=== PATIENT | female | born 1970 | race Caucasian/White ===

== ENCOUNTER → 2016-06-04 | Outpatient (CLI) | payer MEDICAID, OTHER ==
--- NOTE | 2016-06-04 19:28 | XR ---
EXAMINATION TYPE: XR lumbar spine 2 or 3V DATE OF EXAM: 06/04/2016 6:16 PM COMPARISON: NONE HISTORY: Pain after trauma TECHNIQUE: 3 views FINDINGS: Bones and joints and soft tissues are unremarkable for acute findings. IMPRESSION: Negative for fracture or malalignment.
--- NOTE | 2016-06-04 19:30 | XR ---
EXAMINATION TYPE: XR cervical spine comp DATE OF EXAM: 06/04/2016 6:16 PM COMPARISON: NONE HISTORY: Pain after trauma TECHNIQUE: 5 views FINDINGS: The bones and joints and soft tissues are negative for acute findings. IMPRESSION: Negative for fracture or malalignment.
== END | disposition home or self-care (01) ==
LOC: RADXRMAIN 17:23
PROVIDERS: ATTEND Emergency Medicine
DX: S13.4XXA Sprain of ligaments of cervical spine, initial encounter (principal); S30.0XXA Contusion of lower back and pelvis, initial encounter
CPT/HCPCS: 72050; 72100

== ENCOUNTER → 2016-07-01 | Outpatient (CLI) | payer MEDICAID | END | disposition home or self-care (01) | LOC: LABWHC1 17:15 | PROVIDERS: ATTEND Otolaryngology | DX: J30.9 Allergic rhinitis, unspecified (principal) | CPT/HCPCS: 36415 ==

== ENCOUNTER → 2016-08-26 | Outpatient (CLI) | payer MEDICAID ==
[2016-08-28 17:43] LABS: Tea IgG 4.2 mcg/mL (<2.0)
[2016-08-29 20:12] LABS: Crab IgG 24.9 mcg/mL (< 2.0); Walnut IgG 7.3 mcg/mL (< 2.0)
[2016-08-29 20:13] LABS: Banana IgG 33.3 mcg/mL (< 2.0); Chicken Meat IgG 7.9 mcg/mL (< 2.0); Coffee IgG 10.9 mcg/mL (< 2.0); Egg Yolk IgG 42.1 mcg/mL (< 2.0); Orange IgG 10.6 mcg/mL (< 2.0); Pork IgG 6.1 mcg/mL (< 2.0)
[2016-08-29 20:14] LABS: Celery IgG 14.8 mcg/mL (< 2.0); Cow's Milk IgG 53.3 mcg/mL (< 2.0); Oat IgG 23.1 mcg/mL (< 2.0); Potato IgG 8.7 mcg/mL (< 2.0); Rice IgG 30.1 mcg/mL (< 2.0); Soybean IgG 10.4 mcg/mL (< 2.0); Tomato IgG 21.6 mcg/mL (< 2.0); Wheat IgG 24.9 mcg/mL (< 2.0)
[2016-09-02 11:58] LABS: Mis test requested (Blood) Strawberry IgG
[2016-09-02 12:05] LABS: Mis test requested (Blood) Shrimp IgG
[2016-09-02 12:11] LABS: Mis test requested (Blood) Salmon IgG
[2016-09-02 12:13] LABS: Mis test requested (Blood) Lettuce IgG
[2016-09-02 12:15] LABS: Mis test requested (Blood) Onion IgG
[2016-09-02 12:18] LABS: Mis test requested (Blood) Lobster IgG
== END | disposition home or self-care (01) ==
LOC: LABWHC1 07:06
PROVIDERS: ATTEND Otolaryngology
DX: L50.0 Allergic urticaria (principal); J30.89 Other allergic rhinitis; B44.89 Other forms of aspergillosis
CPT/HCPCS: 36415; 86001

== ENCOUNTER → 2016-08-26 | Outpatient (CLI) | payer MEDICAID ==
--- NOTE | 2016-08-26 11:55 | MM ---
Reason for exam: additional evaluation requested from prior study. Last mammogram was performed 1 year ago. History: Patient is nulliparous. Benign US biopsy breast VAD RT of the right breast, August 29, 2014. Benign US biopsy breast add'l VAD RT of the right breast, August 29, 2014. Took hormonal contraceptives for 5 years. Physical Findings: Nurse Summary: a less than 0.5cm nodule in the right breast at 9 o'clock, and a less than 0.5cm nodule in the left breast at 2 o'clock (nurse kp). MG 3D Diag Mammo W/Cad MARITO Bilateral CC, MLO, and LM view(s) were taken. Prior study comparison: August 23, 2015, bilateral MG 3d diag mammo w/cad MARITO. February 20, 2015, right breast US breast RT. August 13, 2014, bilateral MG diagnostic mammo w CAD MARITO. August 04, 2013, bilateral digital screening mammo w/CAD. The breast tissue is heterogeneously dense. This may lower the sensitivity of mammography. Previous mammotome biopsy in the right breast x 2. Bilateral upper outer quadrant palpable markers. No significant new findings when compared with previous films. These results were verbally communicated with the patient and result sheet given to the patient on 08/26/16. ASSESSMENT: Incomplete: need additional imaging evaluation, BI-RAD 0 RECOMMENDATION: Ultrasound of both breasts. (palpable areas)
--- NOTE | 2016-08-26 12:53 | USB ---
Reason for exam: clinical finding. History: Patient is nulliparous. Benign US biopsy breast VAD RT of the right breast, August 29, 2014. Benign US biopsy breast add'l VAD RT of the right breast, August 29, 2014. Took hormonal contraceptives for 5 years. US Breast Limited BILAT Right breast ultrasound demonstrates a 15 x 5 x 11mm oval, solid lesion at 6 o'clock versus 13 x 6 x 13mm corresponding to previous biopsied fibroadenoma and a 5 x 3 x 5mm oval, solid lesion at 9 o'clock versus 7 x 4 x 5mm corresponding to previously biopsied fiboradenoma. No suspicious abnormality at the palpable site. Left breast ultrsaound demonstrates a 8 x 4 x 7mm mixed lesion at 1 o'clock, for which a biopsy is recommended and corresponding to the palpable area, a 5mm cystic, benign lesion at 1 o'clock and a 8 x 4 x 8mm, oval, cystic, benign lesion at 3 o'clock. These results were verbally communicated with the patient and result sheet given to the patient on 08/26/16. ASSESSMENT: Suspicious, BI-RAD 4 RECOMMENDATION: Surgical consultation and ultrasound core biopsy of the left breast. (left 1 o'clock palpable) Called Dr. Glez with mammographic findings and has scheduled an appointment for the patient for 09/01/16 at 11:[address] Hoang. PRELIMINARY REPORT CALLED AND FAXED TO DR. HOANG ON 08/26/16 AT 300/TP. MTDD
== END | disposition home or self-care (01) ==
LOC: RADMAMWWP 07:02
PROVIDERS: ATTEND Obstetrics & Gynecology
DX: N60.02 Solitary cyst of left breast (principal); R92.8 Other abnormal and inconclusive findings on diagnostic imaging of breast
CPT/HCPCS: 76642; G0204; G0279

== ENCOUNTER → 2016-09-10 | Day surgery (SDC) | payer MEDICAID ==
[~2016-09-10] MED LIST: BACITRACIN OINT 1 EACH PACKET TOPICAL ONE; LIDOCAINE 1% INJ 10MG/ML (20 ML MDV) ONE
--- NOTE | 2016-09-10 11:16 | USB ---
EXAMINATION TYPE: US biopsy breast VAD LT DATE OF EXAM: 09/10/2016 11:00 AM CLINICAL HISTORY: R92.8 ABN MAMMO. TECHNIQUE: Ultrasound guided core biopsy of left breast. COMPARISON: NONE FINDINGS: The procedure of ultrasound guided core biopsy was explained to the patient. Benefits, alternatives, and risks were discussed. An informed consent was then obtained. A timeout was performed. The patient was placed in supine positioning for imaging and for the procedure. The overlying skin was prepped and draped in usual sterile fashion. Lidocaine buffered with bicarbonate was used as anesthetic into the skin and subcutaneous tissue up to area of concern in the left breast. A marco was made with surgical scalpel. Under ultrasound guidance, a 12-gauge vacuum assisted biopsy gun device was used to obtain 6 core samples. Following this, a biopsy clip was left in lesion. This area appeared to collapse with first pass suggesting a complex cyst. There was a small cystic component to this structure on the exam. The patient tolerated the procedure well without any immediate complication. The patient was kept in the radiology department for short stay after the procedure and then discharged home in stable condition. Postprocedure mammogram is obtained. Clip is in the upper outer aspect left breast. IMPRESSION: Successful, uncomplicated ultrasound guided core biopsy of area of concern in the left breast, full pathology results to follow. Recommendations: Recommendations are pending pathology results. Pathology Results: Benign BREAST, LEFT, ULTRASOUND GUIDED CORE BIOPSY: FIBROCYSTIC CHANGE (STROMAL FIBROSIS, CYST FORMATION, APOCRINE METAPLASIA, ADENOSIS, AND FOCAL DUCT HYPERPLASIA). Recommendation Follow up ultrasound of the left breast in 6 months. RICHARD
--- NOTE | 2016-09-10 11:22 | MM ---
Post procedure mammogram Post procedure mammogram was obtained craniocaudal and mediolateral views. There is a core marker within the left breast in the upper outer aspect midportion. IMPRESSIONS: 1. Post procedure mammogram for clip placement.
== END ==
LOC: RADUSWWP 08:52
PROVIDERS: ATTEND Surgery
DX: N60.32 Fibrosclerosis of left breast (principal); N60.02 Solitary cyst of left breast; N60.82 Other benign mammary dysplasias of left breast; N60.22 Fibroadenosis of left breast; N60.92 Unspecified benign mammary dysplasia of left breast; R92.8 Other abnormal and inconclusive findings on diagnostic imaging of breast
CPT/HCPCS: 88305; 19083; G0206; A4648; J2001

== ENCOUNTER → 2016-09-16 | Outpatient (CLI) | payer OTHER ==
--- NOTE | 2016-09-16 22:02 | MR ---
MRI CERVICAL SPINE: CLINICAL HISTORY: Sprain of ligaments of cervical spine initial encounter per order. Headaches with n reno pain and numbness and tingling sensation in neck into bilateral upper extremities including kimanie rs per patient after fall injury April 2016 per patient. TECHNIQUE: Multiplanar, multisequence imaging of the cervical spine is performed without IV contrast. COMPARISON: Cervical spine x-ray June 04, 2016. FINDINGS: Sagittal images of the cervical spine show the craniocervical junction to appear within nor mal limits. The cervical and upper thoracic spinal cord is normal in caliber and signal. Some revers al of normal cervical curvature is present. The vertebral body heights are normal. There is mild to m oderate disc space narrowing C5-C6 level. Posterior spur disc complex is seen effacing anterior theca l sac at this level on sagittal images. The bone marrow signal intensity is within normal limits. No significant spurring is seen. Axial images show the C2-C3 and C3-C4 levels to appear within normal limits. Axial images at C4-C5 level show bilateral spur disc complexes causing mild right and mild to moderat e left-sided neural foraminal narrowing on axial image 32. Axial images at C5-C6 level show spur disc complexes causing moderate bilateral neural foraminal narr owing with effacement of left paracentral anterolateral thecal sac seen on axial image 32. Axial images at C6-C7 and C7-T1 levels are felt within normal limits. There is 4 mm T2 hyperintense lesion laterally lower pole level left thyroid lobe on axial image 19 p resumed benign. IMPRESSION: Reversal of normal cervical curvature with degenerative changes mid cervical spine most p rominent at C5-C6 level as detailed above.
== END | disposition home or self-care (01) ==
LOC: RADMRIMAIN 21:13
PROVIDERS: ATTEND Emergency Medicine
DX: M47.812 Spondylosis without myelopathy or radiculopathy, cervical region (principal); M43.8X2 Other specified deforming dorsopathies, cervical region; S30.0XXA Contusion of lower back and pelvis, initial encounter; M25.561 Pain in right knee; M25.562 Pain in left knee; R20.9 Unspecified disturbances of skin sensation
CPT/HCPCS: 72141

== ENCOUNTER → 2016-09-21 | Outpatient (CLI) | payer OTHER ==
--- NOTE | 2016-09-21 19:33 | XR ---
EXAMINATION TYPE: XR wrist complete LT DATE OF EXAM: 09/21/2016 COMPARISON: NONE HISTORY: Pain TECHNIQUE: 4 views FINDINGS: I see no fracture nor dislocation. Scaphoid is intact. Joint spaces are fairly normal. IMPRESSION: Negative left wrist exam
== END ==
LOC: RADXRMAIN 19:01
PROVIDERS: ATTEND Emergency Medicine
DX: M25.532 Pain in left wrist (principal)

== ENCOUNTER → 2017-03-15 | Outpatient (CLI) | payer MEDICAID ==
--- NOTE | 2017-03-16 08:00 | USB ---
Reason for exam: follow-up at short interval from prior study. History: Patient is nulliparous. Benign US biopsy breast VAD LT of the left breast, September 10, 2016. Benign US biopsy breast VAD RT of the right breast, August 29, 2014. Benign US biopsy breast add'l VAD RT of the right breast, August 29, 2014. Took hormonal contraceptives for 5 years. Physical Findings: Nurse Summary: 1cm movable nodule in the right breast at 9 o'clock (nurse mj). US Breast Limited BILAT Right breast ultrasound demonstrates a 0.6 x 0.4 x 0.3cm solid, hypoechoic lesion at 9 o'clock, chronic palpable and a 0.5 x 0.5 x 0.3cm cystic lesion at 10 o'clock and previously biopsied versus 5 x 5 x 3mm, benign. Right upper outer quadrant scanned. Left breast ultrasound includes all four quadrants, the retroareolar region and axilla. Finding demonstrates a 0.4 x 0.3 x 0.2cm cystic, benign lesion at 1 o'clock, a 0.5 x 0.4 x 0.4cm cystic, benign lesion at 1 o'clock and a 0.3 x 0.4 x .4cm cystic, benign lesion at 3 o'clock. Return to annual exams both breasts in 6 months in diagnostic clinic. These results were verbally communicated with the patient and result sheet given to the patient on 03/15/17. ASSESSMENT: Benign, BI-RAD 2 RECOMMENDATION: Follow-up diagnostic mammogram of both breasts in 6 months. Back on schedule.
== END ==
LOC: RADUSWWP 15:43
PROVIDERS: ATTEND Obstetrics & Gynecology
DX: R92.8 Other abnormal and inconclusive findings on diagnostic imaging of breast (principal)

== ENCOUNTER → 2017-06-23 | Outpatient (CLI) | payer MEDICAID ==
--- NOTE | 2017-06-24 08:49 | USB ---
Reason for exam: clinical finding. History: Patient is nulliparous. Benign US biopsy breast VAD LT of the left breast, September 10, 2016. Benign US biopsy breast VAD RT of the right breast, August 29, 2014. Benign US biopsy breast add'l VAD RT of the right breast, August 29, 2014. Took hormonal contraceptives for 5 years. US Breast Limited BILAT Right breast ultrasound demonstrates a 0.7 x 0.6 x 0.3cm oval, cystic lesion at 10 O'clock that correlates with mammographic findings and palpable. Left breast ultrasound includes all four quadrants, the retroareolar region and axilla. Finding demonstrates a 0.4 x 0.3 x 0.2cm oval, cystic lesion at 1 O'clock, a 0.4 x 0.5 x 0.3cm oval, cystic lesion at 1 O'clock that correlates with palpable, and a 0.4 x 0.4 x 0.3cm oval, cystic lesion at 3 O'clock. These results were verbally communicated with the patient and result sheet given to the patient on 06/23/17. ASSESSMENT: Benign, BI-RAD 2 RECOMMENDATION: Routine screening mammogram of both breasts in 1 year. Manage patient on a clinical basis.
--- NOTE | 2017-06-28 14:12 | MM ---
Reason for exam: clinical finding. Last mammogram was performed 9 months ago. History: Patient is nulliparous. Benign US biopsy breast VAD LT of the left breast, September 10, 2016. Benign US biopsy breast VAD RT of the right breast, August 29, 2014. Benign US biopsy breast add'l VAD RT of the right breast, August 29, 2014. Took hormonal contraceptives for 5 years. Physical Findings: Nurse Summary: There is a 1cm nodule in the right breast at 9 O'clock, and a 3cm nodule in the left breast at 2 O'clock (nurse dw). MG 3D Diag Mammo W/Cad MARITO Bilateral CC and MLO view(s) were taken. Prior study comparison: March 15, 2017, bilateral US breast limited BILAT. August 26, 2016, bilateral MG 3d diag mammo w/cad MARITO. The breast tissue is extremely dense which could obscure a lesion on mammography. Previous mammotome biopsy within the right breast x 2, and in the left breast x 1. BB's bilateral, mammogram stable at BB's. No significant new findings when compared with previous films. These results were verbally communicated with the patient and result sheet given to the patient on 06/23/17. ASSESSMENT: Benign, BI-RAD 2 RECOMMENDATION: Routine screening mammogram of both breasts in 1 year. Manage patient on a clinical basis.
== END | disposition home or self-care (01) ==
LOC: RADMAMWWP 14:58
PROVIDERS: ATTEND Obstetrics & Gynecology
DX: N63.10 Unspecified lump in the right breast, unspecified quadrant (principal); N60.02 Solitary cyst of left breast
CPT/HCPCS: 77066; 76642; G0279

== ENCOUNTER → 2017-08-06 | Outpatient (CLI) | payer MEDICAID, OTHER ==
--- NOTE | 2017-08-07 23:55 | US ---
EXAMINATION TYPE: US thyroid st tissue head/neck DATE OF EXAM: 08/06/2017 COMPARISON: NONE CLINICAL HISTORY: E04.1 Thyroid nodule. Thyroid nodule GLAND SIZE: Right Lobe: 5.4 x 1.7 x 2.0 cm Overall Parenchyma: homogenous Left Lobe: 5.0 x 1.3 x 1.8 cm Overall Parenchyma: homogeneous Isthmus Thickness: 0.2 cm NODULES RIGHT: # of nodules measured on right: 0 LEFT: # of nodules measured on left: 1 1. 0.9 X 0.7 x 0.6 cm hypoechoic solid nodule at the lower pole with well-defined margins. This nod ule is taller than wide and shows intranodular vascularity. Prior size: no previous ISTHMUS: # of nodules measured in the isthmus: 0 Bilateral neck scanned, no evidence of lymphadenopathy. IMPRESSION: Fairly homogeneous normal-sized thyroid with 9 mm hypoechoic solid nodule lower pole level of the thy roid noted.
== END ==
LOC: RADUSWWP 16:09
PROVIDERS: ATTEND Family Medicine
DX: E04.1 Nontoxic single thyroid nodule (principal)
CPT/HCPCS: 76536

== ENCOUNTER → 2017-11-24 | Outpatient (CLI) | payer MEDICAID ==
--- NOTE | 2017-11-25 09:05 | NM ---
EXAMINATION TYPE: NM thyroid image w uptake DATE OF EXAM: 11/25/2017 COMPARISON: Thyroid ultrasound dated 08/06/2017 HISTORY: Left lobe thyroid nodule. TECHNIQUE: Thyroid iodine uptake is calculated and images performed after the oral administration of 332 uCi 1-123 Capsule. FINDINGS: There is normal distribution of activity throughout the gland. No photopenic defect is seen . The 4 hour iodine uptake is calculated at 4.2% (normal range 8-14%). The 24-hour iodine uptake is c alculated at 13.1% (normal range 15-35%). IMPRESSION: Decreased uptake of the thyroid gland at both 4 and 24 hours. This can be seen in excess iodine uptake, subacute thyroiditis, Sreedhar's disease, or struma ovarii.
== END | disposition home or self-care (01) ==
LOC: RADNMMAIN 08:01
PROVIDERS: ATTEND Family Medicine
DX: E04.1 Nontoxic single thyroid nodule (principal)
CPT/HCPCS: 78014; A9516

== ENCOUNTER → 2018-01-05 | Outpatient (CLI) | payer MEDICAID ==
[2018-01-05 14:46] LABS: T4, Free (Free Thyroxine) 0.92 ng/dL (0.78-2.19)
[2018-01-06 07:39] LABS: Herpes simplex I and/or II IgM 2.68 INDEX (<=0.90); Herpes simplex IgG I Ab 21.1 (< or = 0.90); Herpes simplex IgG II Ab 0.07 (< or = 0.90)
[2018-01-06 13:14] LABS: HIV 1 AB Non-Reactive (Non-Reactive); HIV AB P24 Non-Reactive (Non-Reactive); HIV P24 AG Non-Reactive (Non-Reactive)
== END | disposition home or self-care (01) ==
LOC: LABWHC1 13:15
PROVIDERS: ATTEND Obstetrics & Gynecology
DX: E04.1 Nontoxic single thyroid nodule (principal); N90.89 Other specified noninflammatory disorders of vulva and perineum
CPT/HCPCS: 36415; 84439; 84443; 86694; 86695; 86696; 86780; 87340; 87390

== ENCOUNTER → 2018-01-14 | Outpatient (CLI) | payer MEDICAID ==
--- NOTE | 2018-01-14 16:36 | US ---
EXAMINATION TYPE: US thyroid st tissue head/neck DATE OF EXAM: 01/14/2018 COMPARISON: 08/06/2017 CLINICAL HISTORY: E04.1 Nontoxic single thyroid nodule. GLAND SIZE: Right Lobe: 5.2 x 1.8 x 1.9 cm Overall Parenchyma: homogenous Left Lobe: 5.3 x 1.9 x 1.5 cm Overall Parenchyma: homogeneous Isthmus Thickness: 0.2 cm NODULES RIGHT: # of nodules measured on right: 0 LEFT: # of nodules measured on left: 1 1. 0.8 X 0.6 x 0.5 cm hypoechoic solid nodule at the lower pole with well-defined margins. This no dule is taller than wide and shows no intranodular vascularity. Prior size: 0.9 x 0.7 x 0.6 cm ISTHMUS: # of nodules measured in the isthmus: 0 Bilateral neck scanned, no evidence of lymphadenopathy. IMPRESSION: 1. Subcentimeter nodule left lobe thyroid, stable from comparison.
== END | disposition home or self-care (01) ==
LOC: RADUSWWP 08:17
PROVIDERS: ATTEND Internal Medicine
DX: E04.1 Nontoxic single thyroid nodule (principal)
CPT/HCPCS: 76536

== ENCOUNTER → 2018-08-15 | Outpatient (CLI) | payer MEDICAID ==
--- NOTE | 2018-08-15 09:13 | MM ---
Reason for exam: clinical finding. Last mammogram was performed 1 year and 2 months ago. History: Patient is nulliparous. Benign US biopsy breast VAD LT of the left breast, September 10, 2016. Benign US biopsy breast VAD RT of the right breast, August 29, 2014. Benign US biopsy breast add'l VAD RT of the right breast, August 29, 2014. Took hormonal contraceptives for 5 years. Physical Findings: Nurse Summary: 1cm nodule in the right breast at 12 o'clock and 2 o'clock, 1cm nodule in the left breast at 9:30 (nurse dw). MG 3D Diag Mammo W/Cad MARITO Bilateral CC and MLO view(s) were taken. LM and ML view(s) were taken of the left breast. Prior study comparison: June 23, 2017, bilateral MG 3d diag mammo w/cad MARITO. September 10, 2016, left breast MG diagnostic mammo LT wo CAD. The breast tissue is heterogeneously dense. This may lower the sensitivity of mammography. Previous mammotome biopsy in the right breast x 2 and in the left breast x 1. Underlying nodularity upper outer quadrant, some of which appear chronic. Bilateral palpable markers along the upper outer quadrants. Asymmetric density posteriorly superiorly left MLO view disperses on spot 3D. These results were verbally communicated with the patient and result sheet given to the patient on 08/15/18. ASSESSMENT: Incomplete: need additional imaging evaluation, BI-RAD 0 RECOMMENDATION: Ultrasound of both breasts. (right upper outer quadrant, left entire as ordered attention upper outer quadrant and palpables)
--- NOTE | 2018-08-15 09:16 | USB ---
Reason for exam: additional evaluation requested from abnormal screening. History: Patient is nulliparous. Benign US biopsy breast VAD LT of the left breast, September 10, 2016. Benign US biopsy breast VAD RT of the right breast, August 29, 2014. Benign US biopsy breast add'l VAD RT of the right breast, August 29, 2014. Took hormonal contraceptives for 5 years. US Breast Limited BILAT Right limited breast ultrasound including focal area of concern, retroareolar and axilla demonstrates a 0.9 x 0.6 x 0.7cm cystic lesion at 11 o'clock. Scanned upper outer quadrant including palpables. Left complete breast ultrasound includes all four quadrants, the retroareolar region and axilla. Finding demonstrates a 0.5 x 0.3 x 0.5cm cystic lesion at 1 o'clock, a 0.4 x 0.2 x 0.4cm cystic lesion at 2 o'clock and a 0.5 x 0.2 x 0.8cm cystic cluster at 3 o'clock. All benign. Scanned entire with particular attention to the upper outer quadrant palpables. These results were verbally communicated with the patient and result sheet given to the patient on 08/15/18. ASSESSMENT: Benign, BI-RAD 2 RECOMMENDATION: Routine screening mammogram of both breasts in 1 year.
== END | disposition home or self-care (01) ==
LOC: RADMAMWWP 07:39
PROVIDERS: ATTEND Obstetrics & Gynecology
DX: R92.8 Other abnormal and inconclusive findings on diagnostic imaging of breast (principal); N60.01 Solitary cyst of right breast; N60.02 Solitary cyst of left breast
CPT/HCPCS: 77062; 77066

== ENCOUNTER → 2019-03-09 | Outpatient (CLI) | payer MEDICAID ==
[2019-03-09 17:36] LABS: T4, Free (Free Thyroxine) 1.1 ng/dL (0.80-1.80)
== END | disposition home or self-care (01) ==
LOC: LABWHC1 08:23
PROVIDERS: ATTEND Internal Medicine
DX: R94.6 Abnormal results of thyroid function studies (principal)
CPT/HCPCS: 36415; 84439; 84443; 86376

== ENCOUNTER → 2019-10-02 | Outpatient (CLI) | payer MEDICAID ==
--- NOTE | 2019-10-03 13:30 | MM ---
Reason for exam: screening (asymptomatic). Last mammogram was performed 1 year and 2 months ago. History: Patient is nulliparous. Benign US biopsy breast VAD LT of the left breast, September 10, 2016. Benign US biopsy breast VAD RT of the right breast, August 29, 2014. Benign US biopsy breast add'l VAD RT of the right breast, August 29, 2014. Took hormonal contraceptives for 5 years. Physical Findings: A clinical breast exam by your physician is recommended on an annual basis and results should be correlated with mammographic findings. MG 3D Screening Mammo W/Cad Bilateral CC and MLO view(s) were taken. Prior study comparison: August 15, 2018, bilateral MG 3d diag mammo w/cad MARITO. June 23, 2017, bilateral MG 3d diag mammo w/cad MARITO. The breast tissue is extremely dense which could obscure a lesion on mammography. Previous mammotome biopsy in the right and left breast. No significant changes when compared with prior studies. ASSESSMENT: Benign, BI-RAD 2 RECOMMENDATION: Routine screening mammogram of both breasts in 1 year.
== END | disposition home or self-care (01) ==
LOC: RADMAMWWP 15:47
PROVIDERS: ATTEND Obstetrics & Gynecology
DX: Z12.31 Encounter for screening mammogram for malignant neoplasm of breast (principal)
CPT/HCPCS: 77063; 77067

== ENCOUNTER → 2019-10-02 | Outpatient (CLI) | payer MEDICAID ==
--- NOTE | 2019-10-03 07:29 | US ---
EXAMINATION TYPE: US thyroid st tissue head/neck DATE OF EXAM: 10/02/2019 COMPARISON: US CLINICAL HISTORY: E04.1 thyroid nodule. GLAND SIZE: Right Lobe: 4.2 x 1.8 x 1.5 cm Overall Parenchyma: homogenous Left Lobe: 4.2 x1.9 x 1.1 cm Overall Parenchyma: homogeneous Isthmus Thickness: 0.2 cm NODULES RIGHT: # of nodules measured on right: 0 LEFT: # of nodules measured on left: 1 1. 0.9 X 0.7 x 0.5 cm hypoechoic solid nodule at the lower pole with margins. This nodule is wider than tall and shows no intranodular vascularity. Prior size: 0.8 x 0.6 x 0.5 cm ISTHMUS: # of nodules measured in the isthmus: 0 Bilateral neck scanned: no evidence of lymphadenopathy. IMPRESSION: Nonspecific subcentimeter thyroid nodularity left thyroid lobe.
== END | disposition home or self-care (01) ==
LOC: RADUSWWP 15:44
PROVIDERS: ATTEND Internal Medicine
DX: E04.1 Nontoxic single thyroid nodule (principal)
CPT/HCPCS: 76536

== ENCOUNTER → 2020-02-29 | Outpatient (CLI) | payer MEDICAID ==
[2020-02-29 15:13] LABS: Basophils % (A) 1 %; Eosinophils # (A) 0.1 k/uL (0-0.7); Eosinophils % (A) 1 %; HCT 37.3 % (34.0-46.0); HGB 11.7 gm/dL (11.4-16.0); Lymphocytes # (A) 1.4 k/uL (1.0-4.8); Lymphocytes % (A) 25 %; MCH 28.6 pg (25.0-35.0); MCHC 31.4 g/dL (31.0-37.0); MCV 91.1 fL (80.0-100.0); Mean Platelet Volume 7.8; Monocytes # (A) 0.3 k/uL (0-1.0); Monocytes % (A) 6 %; Neutrophils # (A) 3.7 k/uL (1.3-7.7); Neutrophils % (A) 66 %; Platelet Count 239 k/uL (150-450); RDW 14.7 % (11.5-15.5); WBC 5.6 k/uL (3.8-10.6)
[2020-02-29 21:36] LABS: Luteinizing Hormone 4.1 mIU/mL
[2020-02-29 21:37] LABS: Follicle Stimulating Hormone 3.7 mIU/mL
[2020-02-29 22:26] LABS: ALT 19 U/L (8-44); AST 22 U/L (13-35); African American GFR (CKD) 101.8 (60.0-200.0); Albumin/Globulin Ratio 1.96 (1.60-3.17); Alkaline Phosphatase 34 U/L (41-126); C Reactive Protein <0.4 mg/dL (0.0-0.8); Calcium 9.8 mg/dL (8.7-10.3); Carbon Dioxide 24.5 mmol/L (21.6-31.8); Chloride 103 mmol/L (96-109); Chol/HDL Ratio 2.35; Cholesterol 195 mg/dL (0-200); Estradiol 406.3 pg/mL; Globulin 2.3 g/dL (1.6-3.3); Glucose 98 mg/dL (70-110); LDL Cholesterol,Calculated 96.4 mg/dL (0.0-131.0); Non-African American GFR(CKD) 87.8 (60.0-200.0); Potassium 4.1 mmol/L (3.5-5.5); Sodium 138 mmol/L (135-145); Total Bilirubin 0.3 mg/dL (0.2-1.2); Total Protein 6.8 g/dL (6.2-8.2)
[2020-03-01 00:50] LABS: Erythrocyte Sedimentation Rate 7 mm/Hr (0-20)
[2020-03-01 10:31] LABS: ANA Pattern Speckled
== END | disposition home or self-care (01) ==
LOC: LABWHC1 14:47
PROVIDERS: ATTEND Physician Assistant Medical
DX: Z00.01 Encounter for general adult medical examination with abnormal findings (principal); F41.9 Anxiety disorder, unspecified; R94.6 Abnormal results of thyroid function studies; R20.2 Paresthesia of skin; R20.9 Unspecified disturbances of skin sensation; R61 Generalized hyperhidrosis
CPT/HCPCS: 36415; 80053; 80061; 82670; 83001; 83002; 84443; 85025; 85652; 86038; 86039; 86140

== ENCOUNTER → 2020-09-12 | Outpatient (CLI) | payer MEDICAID ==
[2020-09-13 09:40] LABS: Thyroid Peroxidase Antibodies <28.0 U/mL (0.0-60.0)
[2020-09-13 09:48] LABS: Progesterone 6.6 ng/mL
[2020-09-13 09:54] LABS: Estradiol 116.4 pg/mL; Follicle Stimulating Hormone 4.2 mIU/mL
== END | disposition home or self-care (01) ==
LOC: LABWHC1 13:51
PROVIDERS: ATTEND Obstetrics & Gynecology
DX: N95.9 Unspecified menopausal and perimenopausal disorder (principal); R14.0 Abdominal distension (gaseous)
CPT/HCPCS: 36415; 82670; 83001; 84144; 84403; 84443; 84481; 86376

== ENCOUNTER → 2020-10-22 | Outpatient (CLI) | payer MEDICAID ==
--- NOTE | 2020-10-24 11:52 | MM ---
Reason for exam: screening (asymptomatic). Last mammogram was performed 1 year and 1 month ago. History: Patient is nulliparous. Benign US biopsy breast VAD LT of the left breast, September 10, 2016. Benign US biopsy breast VAD RT of the right breast, August 29, 2014. Benign US biopsy breast add'l VAD RT of the right breast, August 29, 2014. Took hormonal contraceptives for 5 years. Physical Findings: A clinical breast exam by your physician is recommended on an annual basis and results should be correlated with mammographic findings. MG 3D Screening Mammo W/Cad Bilateral CC and MLO view(s) were taken. Prior study comparison: October 02, 2019, bilateral MG 3d screening mammo w/cad. August 15, 2018, bilateral MG 3d diag mammo w/cad MARITO. The breast tissue is heterogeneously dense. This may lower the sensitivity of mammography. Focal asymmetry far posterior central left breast. This finding is changed when compared with previous exams. ASSESSMENT: Incomplete: need additional imaging evaluation, BI-RAD 0 RECOMMENDATION: Special view mammogram of the left breast. If lesion persists on supplemental views, image directed ultrasound is recommended. [facility] will attempt to contact patient to return for supplemental views and ultrasound if indicated.
== END | disposition home or self-care (01) ==
LOC: RADMAMWWP 08:16
PROVIDERS: ATTEND Obstetrics & Gynecology
DX: Z12.31 Encounter for screening mammogram for malignant neoplasm of breast (principal)
CPT/HCPCS: 77063; 77067

== ENCOUNTER → 2020-10-22 | Outpatient (CLI) | payer MEDICAID | END | disposition home or self-care (01) | DX: R76.0 Raised antibody titer (principal) | CPT/HCPCS: 36415; 85652; 86038; 86039; 86140; 86431 ==

== ENCOUNTER → 2020-11-08 | Outpatient (CLI) | payer MEDICAID ==
--- NOTE | 2020-11-14 09:58 | MM ---
Reason for exam: additional evaluation requested from abnormal screening. Last mammogram was performed 1 month ago. History: Patient is nulliparous. Benign US biopsy breast VAD LT of the left breast, September 10, 2016. Benign US biopsy breast VAD RT of the right breast, August 29, 2014. Benign US biopsy breast add'l VAD RT of the right breast, August 29, 2014. Took hormonal contraceptives for 5 years. Physical Findings: Nurse did not find any significant physical abnormalities on exam. MG 3D Work Up W/Cad LT Spot compression CC, spot compression LM, and LM view(s) were taken of the left breast. Prior study comparison: October 22, 2020, bilateral MG 3d screening mammo w/cad. October 02, 2019, bilateral MG 3d screening mammo w/cad. August 15, 2018, bilateral MG 3d diag mammo w/cad MARITO. The breast tissue is heterogeneously dense. This may lower the sensitivity of mammography. There is asymmetry of the left far posterior breast at approximately 12 o'clock and ultrasound is recommended. There is a 1.3 x 1.4 x 0.9cm grouping of amorphous calcifications in the left posterior breast at 12-1 o'clock and stereotactic core biopsy is recommended. These results were verbally communicated with the patient and result sheet given to the patient on 11/08/20. ASSESSMENT: Incomplete: need additional imaging evaluation, BI-RAD 0 RECOMMENDATION: Ultrasound and stereotactic core biopsy of the left breast. Called Dr. Glez's office with mammographic findings and has scheduled an appointment for the patient for 11/25/20 at 11:[address] Dozier. Biopsy scheduled for 11/18/20 at 8:00. PRELIMINARY REPORT CALLED AND FAXED TO DR. DOZIER ON 11/14/20.
== END | disposition home or self-care (01) ==
LOC: RADMAMWWP 10:19
PROVIDERS: ATTEND Obstetrics & Gynecology
DX: R92.2 Inconclusive mammogram (principal); R92.1 Mammographic calcification found on diagnostic imaging of breast
CPT/HCPCS: 77061; 77065

== ENCOUNTER → 2020-11-11 | Outpatient (CLI) | payer MEDICAID ==
--- NOTE | 2020-11-14 10:01 | USB ---
Reason for exam: additional evaluation requested from abnormal screening. History: Patient is nulliparous. Benign US biopsy breast VAD LT of the left breast, September 10, 2016. Benign US biopsy breast VAD RT of the right breast, August 29, 2014. Benign US biopsy breast add'l VAD RT of the right breast, August 29, 2014. Took hormonal contraceptives for 5 years. US Breast Workup Limited LT Left limited breast ultrasound including focal area of concern, retroareolar and axilla demonstrates three oval, cystic lesions measuring 0.7 x 0.7 x 0.8cm at 1 o'clock, 1.2 x 0.6 x 1.2cm at 1 o'clock and 1.4 x 0.7 x 1.2cm at 2 o'clock. Scanned 11-2 o'clock. These results were verbally communicated with the patient and result sheet given to the patient on 11/11/20. ASSESSMENT: Suspicious, BI-RAD 4 RECOMMENDATION: Stereotactic core biopsy of the left breast. Called Dr. Glez's office with mammographic findings and has scheduled an appointment for the patient for 11/25/20 at 11:[address] Dozier. Biopsy scheduled for 11/18/20 at 8:00. PRELIMINARY REPORT CALLED AND FAXED TO DR. DOZIER ON 11/14/20.
== END | disposition home or self-care (01) ==
LOC: RADUSWWP 07:01
PROVIDERS: ATTEND Radiology Diagnostic Radiology
DX: N60.02 Solitary cyst of left breast (principal)

== ENCOUNTER → 2020-11-18 | Day surgery (SDC) | payer MEDICAID ==
[2020-11-18 07:25] VITALS: RESP 16; TEMP 98.6
[2020-11-18 08:56] VITALS: BP 113/72; PULSE 89
--- NOTE | 2020-11-18 10:02 | MM ---
EXAMINATION TYPE: MG stereo VAD BX LT DATE OF EXAM: 11/18/2020 COMPARISON: 10/22/2020, 11/08/2020 CLINICAL HISTORY: 49-year-old female R92.8, abnormal mammogram, referred for stereotactic core needle biopsy left breast microcalcifications. TECHNIQUE: Stereotactic guided core biopsy of the left breast. FINDINGS: The procedure of stereotactic guided core biopsy was explained to the patient. Benefits, alternatives, and risks were discussed. An informed consent was then obtained. The far posterior 12:00 grouped microcalcifications in the left breast were targeted for biopsy. The shortness pathway for biopsy was chosen. Shortness pathway was a CC from above approach. I performed the localization followed by the remainder of the procedure. A vacuum assisted biopsy gun was used to obtain 11 core samples. The patient tolerated the procedure well without any immediate complication. The patient was kept in the radiology department for short stay after the procedure and then discharged home in stable condition. Targeted calcifications are identified in specimen mammogram. On postbiopsy mammogram, the clip may have migrated 1.8 cm superiorly (when correlated with the patient's diagnostic workup on 11/08/2020. Refer to the [facility] image obtained at that time. IMPRESSION: SUCCESSFUL, UNCOMPLICATED STEREOTACTIC GUIDED CORE BIOPSY 12:00 POSTERIOR LEFT BREAST MICROCALCIFICATIONS. THERE APPEARS TO BE 1.8 CM OF SUPERIOR MIGRATION. FULL PATHOLOGY RESULTS TO FOLLOW. 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 Recommendation Consider open biopsy. RICHARD
== END ==
LOC: RADMAMWWP 07:14
PROVIDERS: ATTEND Student in an Organized Health Care Education/Training Program
DX: R92.1 Mammographic calcification found on diagnostic imaging of breast (principal); R92.8 Other abnormal and inconclusive findings on diagnostic imaging of breast
CPT/HCPCS: 19081; 88305; A4648; J2001

== ENCOUNTER → 2021-06-17 | Outpatient (CLI) | payer MEDICAID ==
--- NOTE | 2021-06-17 09:11 | USB ---
Reason for exam: additional evaluation requested from prior study. History: Patient has history of high-risk lesion on a previous biopsy at age 49 and is nulliparous. High risk MG stereo VAD BX LT of the left breast, November 18, 2020. Benign US biopsy breast VAD LT of the left breast, September 10, 2016. Benign US biopsy breast VAD RT of the right breast, August 29, 2014. Benign US biopsy breast add'l VAD RT of the right breast, August 29, 2014. Took hormonal contraceptives for 5 years. Physical Findings: A clinical breast exam by your physician is recommended on an annual basis and results should be correlated with mammographic findings. US Breast Limited LT Left limited breast ultrasound including focal area of concern, retroareolar and axilla demonstrates a 1.6 x 0.8 x 1.4cm oval, cystic lesion at 1 o'clock and a 1.6 x 0.9 x 1.5cm oval, cystic lesion at 2 o'clock. Stable benign thin walled cysts from 11/11/20. No suspicious mass or fluid collection at lumpectomy site. These results were verbally communicated with the patient and result sheet given to the patient on 06/17/21. ASSESSMENT: Benign, BI-RAD 2 RECOMMENDATION: Clinical management of the left breast. Manage patient on a clinical basis.
== END | disposition home or self-care (01) ==
LOC: RADUSWWP 08:21
PROVIDERS: ATTEND Obstetrics & Gynecology
DX: N64.4 Mastodynia (principal)

== ENCOUNTER → 2021-06-17 | Outpatient (CLI) | payer MEDICAID ==
[2021-06-17 14:53] LABS: T4, Free (Free Thyroxine) 1.27 ng/dL (0.800-1.800)
== END | disposition home or self-care (01) ==
LOC: LABWHC1 08:24
PROVIDERS: ATTEND Internal Medicine
DX: E04.1 Nontoxic single thyroid nodule (principal)
CPT/HCPCS: 36415; 84439; 84443

== ENCOUNTER → 2021-06-30 | Outpatient (CLI) | payer MEDICAID ==
--- NOTE | 2021-06-30 08:22 | US ---
EXAMINATION TYPE: US thyroid st tissue head/neck DATE OF EXAM: 06/30/2021 COMPARISON: NONE CLINICAL HISTORY: E04.1 Nodule. f/u exam, not on meds, no symptoms GLAND SIZE: Right Lobe: 5.6 x 1.7 x 2.2 cm Overall Parenchyma: heterogenous Left Lobe: 5.5 x 1.7 x 1.7 cm Overall Parenchyma: heterogeneous Isthmus Thickness: 0.2 cm NODULES RIGHT: # of nodules measured on right: 0 LEFT: # of nodules measured on left: 1 1. 0.9 x 0.6 x 0.6cm, lower , mixed cystic and solid nodule, which is wider than tall, with smooth m argins, without echogenic foci. Prior size: 0.9 x 0.7 x 0.5 cm ISTHMUS: # of nodules measured in the isthmus: 0 Bilateral neck scanned, no evidence of lymphadenopathy. IMPRESSION: Thyroid glandular enlargement and heterogeneity with stable nonspecific left-sided thyroid nodule. 2017 ACR TI-RADS LEVEL: *Highest TI-RADS level nodule reported
== END | disposition home or self-care (01) ==
LOC: RADUSWWP 07:41
PROVIDERS: ATTEND Internal Medicine
DX: E04.1 Nontoxic single thyroid nodule (principal)
CPT/HCPCS: 76536

== ENCOUNTER → 2021-10-23 | Outpatient (CLI) | payer MEDICAID ==
--- NOTE | 2021-10-24 09:33 | MM ---
Reason for Exam: Screening (asymptomatic). Last screening mammogram was performed 12 month(s) ago. Patient History: Menarche at age 14. Patient has no children. Patient used Hormonal Contraceptives for 5 years. 01/31/2021, Lumpectomy on the Left side. 11/18/2020, High risk Core Biopsy on the left side. 09/10/2016, Benign Core Biopsy on the left side. 08/29/2014, Benign Core Biopsy on the right side. 08/29/2014, Benign Core Biopsy on the right side. Risk Values: Ann 5 year model risk: 1.9%. NCI Lifetime model risk: 15.3%. Prior Study Comparison: 10/02/2019 Bilateral Screening Mammogram, [facility]. 10/22/2020 Bilateral Screening Mammogram, [facility]. 11/08/2020 Left Diagnostic Mammogram, [facility]. Tissue Density: The breast tissue is heterogeneously dense. This may lower the sensitivity of mammography. Findings: Analyzed By CAD. There are 2 biopsy clips in the right breast redemonstrated and single biopsy clip in the left breast redemonstrated. There is new circumscribed 1.8 cm mass in the left breast middle to posterior depth slightly outer and upper aspect and towards further workup. Overall Assessment: Incomplete: need additional imaging evaluation, BI-RAD 0 Management: Diagnostic Breast Ultrasound of the left breast. Targeted ultrasound evaluation of the new left breast lesion. Electronically signed and approved by: Brannon Comer M.D.
== END | disposition home or self-care (01) ==
LOC: RADMAMWWP 09:21
DX: Z12.31 Encounter for screening mammogram for malignant neoplasm of breast (principal)
CPT/HCPCS: 77063; 77067

== ENCOUNTER → 2021-10-30 | Outpatient (CLI) | payer MEDICAID ==
--- NOTE | 2021-10-30 09:56 | MM ---
Reason for Exam: Additional evaluation requested from abnormal screening. Last screening mammogram was performed less than 1 month ago. Patient History: Menarche at age 14. Patient has no children. Patient used Hormonal Contraceptives for 5 years. 01/31/2021, Excisional Biopsy on the Left side. 01/31/2021, Lumpectomy on the Left side. 11/18/2020, High risk Core Biopsy on the left side. 09/10/2016, Benign Core Biopsy on the left side. 08/29/2014, Benign Core Biopsy on the right side. 08/29/2014, Benign Core Biopsy on the right side. Risk Values: Ann 5 year model risk: 1.9%. NCI Lifetime model risk: 15.3%. Prior Study Comparison: 10/22/2020 Bilateral Screening Mammogram, [facility]. 11/08/2020 Left Diagnostic Mammogram, [facility]. 10/23/2021 Bilateral MG 3D screening mammo w/cad, [facility]. Tissue Density: Left: The breast tissue is heterogeneously dense. This may lower the sensitivity of mammography. Findings: Mammogram Marker is placed at the site of the ultrasound abnormality which does correspond to a microclip marker and site of prior biopsy.. Technique: Method: Whole Breast Handheld. Patient Position: Supine. Findings: The whole breast of the left breast was scanned. Hypoechoic area left 3:00 position 7 cm from the nipple is noted. This appears to correlate to the site of a prior biopsy however a marker was placed at this site and corresponding mammogram confirms that this in fact was sampled previously. 1.9 cm simple cyst is noted at the left 10:00 position 7 cm from the nipple. 1.4 cm simple cyst of left 10:00 6 cm from the nipple. Overall Assessment: Probably benign, BI-RAD 3 Assessment: MG 3D work up w/cad LT - Left: Incomplete: need additional imaging evaluation, BI-RAD 0. US breast workup LT - Left: Probably benign, BI-RAD 3. Management: Diagnostic Mammogram of the left breast in 6 months. A clinical breast exam by your physician is recommended on an annual basis and results should be correlated with mammographic findings. Results were given to the patient verbally at the time of exam. Electronically signed and approved by: Daniel Lopez M.D. Radiologis
== END | disposition home or self-care (01) ==
LOC: RADUSWWP 07:04
DX: N60.02 Solitary cyst of left breast (principal)
CPT/HCPCS: 77061; 77065

== ENCOUNTER → 2022-02-10 | Outpatient (CLI) | payer MEDICAID ==
[2022-02-10 18:42] LABS: Estradiol 5.2 pg/mL; Follicle Stimulating Hormone 59.4 mIU/mL
== END | disposition home or self-care (01) ==
LOC: LABWHC1 10:21
PROVIDERS: ATTEND Obstetrics & Gynecology
DX: N95.2 Postmenopausal atrophic vaginitis (principal)
CPT/HCPCS: 36415; 82670; 83001; 84144

== ENCOUNTER → 2022-02-10 | Outpatient (CLI) | payer MEDICAID ==
--- NOTE | 2022-02-11 08:48 | BMR ---
EXAMINATION TYPE: MR breast BILAT wo/w con DATE OF EXAM: 02/10/2022 COMPARISON: 3-D screening mammogram October 23, 2021 BI-RADS 0. Diagnostic left breast ultrasound and lef t breast mammogram October 30, 2021 BI-RADS 3. Outside bilateral breast MRI January 14, 2021. HISTORY: BENIGN MAMMARY DYSPLASIA OF LEFT BREAST. History of bilateral benign biopsies. History of le ft-sided excision January 31, 2021 after biopsy with high risk lesion (FE/ADH) TECHNIQUE: A series of fat and water weighted images in the long and short axis views of both breasts are obtained in conjunction with dynamic contrast MRI with subtraction technique. The patient was i njected with 6 mL intravenous Gadavist gadolinium contrast. Three-dimensional and additional postpr ocessing imaging is created on independent workstation and reviewed during official interpretation of this study. FINDINGS: Heterogeneously dense fibroglandular tissue throughout the bilateral breasts is redemonstra yandel. No concerning new axillary adenopathy is noted bilaterally. There are numerous simple-appearing thin-walled cysts scattered throughout fibroglandular tissue bilaterally including dominant 1.8 x 1.3 cm thin-walled cyst in the left breast posteriorly axial image 35 which correlates with recent ultra sound dynamic postcontrast imaging shows mild background enhancement with some areas of tiny nodulari ty including near cluster of cysts in the lateral aspect of the right breast redemonstrated. This hussain ws benign gradual type enhancement on dynamic imaging. Delayed dynamic imaging shows no suspicious in tramammary adenopathy. With regards to the right breast there is artifact from biopsy clip in the anterior outer aspect rede monstrated. There is no pathologic enhancement or enhancing mass is noted. No abnormal skin thickenin g is seen. The chest wall is intact. With regards to the left breast there is artifact from biopsy clip in the upper outer breast anterior to middle depth. No abnormal skin thickening is seen. Slight diminished size of the left breast [place] with history of prior excision. No pathologic enhancement or enhancing masses are identified. The chest wall is intact. No significant incidental finding. IMPRESSION: No MRI evidence for invasive malignancy in either breast. BI-RADS 2 benign findings both breasts. Recommendation: Diagnostic left breast mammogram April 2022 as requested on November 07 workup. Continu ed annual mammogram follow up after this.
== END | disposition home or self-care (01) ==
LOC: RADMRIMAIN 09:03
PROVIDERS: ATTEND Surgery
DX: N60.92 Unspecified benign mammary dysplasia of left breast (principal)
CPT/HCPCS: 77049; A9585

== ENCOUNTER → 2022-05-04 | Outpatient (CLI) | payer MEDICAID ==
--- NOTE | 2022-05-04 09:31 | MM ---
Reason for Exam: Follow-up at short interval from prior study. Last screening mammogram was performed 6 month(s) ago. Patient History: Menarche at age 14. Patient has no children. Premenopausal. Patient used Hormonal Contraceptives for 5 years. 01/31/2021, Excisional Biopsy on the Left side. 01/31/2021, Lumpectomy on the Left side. 11/18/2020, High risk Core Biopsy on the left side. 09/10/2016, Benign Core Biopsy on the left side. 08/29/2014, Benign Core Biopsy on the right side. 08/29/2014, Benign Core Biopsy on the right side. Risk Values: Ann 5 year model risk: 1.8%. NCI Lifetime model risk: 14.9%. Prior Study Comparison: 11/08/2020 Left Diagnostic Mammogram, [facility]. 10/23/2021 Bilateral MG 3D screening mammo w/cad, [facility]. 10/30/2021 Left MG 3D work up w/cad , [facility]. Tissue Density: Left: The breast tissue is heterogeneously dense. This may lower the sensitivity of mammography. Findings: Analyzed By CAD. Stable circumscribed 1.8 cm mass in the left breast middle to posterior depth slightly outer upper aspect which corresponds to a cyst on prior ultrasound. Previous mammotome biopsy in the left breast. Stable chronic nodularity within the left breast. No new suspicious masses or worrisome clustered microcalcification. Postsurgical changes of the left breast. Overall Assessment: Incomplete: need additional imaging evaluation, BI-RAD 0 Management: Diagnostic Breast Ultrasound of the left breast. A clinical breast exam by your physician is recommended on an annual basis and results should be correlated with mammographic findings. This exam should not preclude additional follow-up of suspicious palpable abnormalities. Results were given to the patient verbally at the time of exam. Electronically signed and approved by: Tani Murphy D.O.
--- NOTE | 2022-05-04 09:53 | USB ---
Reason for Exam: Follow-up at short interval from prior study. Patient History: Menarche at age 14. Patient has no children. Premenopausal. Patient used Hormonal Contraceptives for 5 years. 01/31/2021, Excisional Biopsy on the Left side. 01/31/2021, Lumpectomy on the Left side. 11/18/2020, High risk Core Biopsy on the left side. 09/10/2016, Benign Core Biopsy on the left side. 08/29/2014, Benign Core Biopsy on the right side. 08/29/2014, Benign Core Biopsy on the right side. Risk Values: Ann 5 year model risk: 1.8%. NCI Lifetime model risk: 14.9%. Prior Study Comparison: 11/08/2020 Left Diagnostic Mammogram, [facility]. 10/23/2021 Bilateral MG 3D screening mammo w/cad, [facility]. 10/30/2021 Left MG 3D work up w/cad , [facility]. Findings: The upper outer quadrant of the left breast, the axilla of the left breast and the retroareolar of the left breast were scanned. Left breast ultrasound from 12- 4:00 was obtained with additional evaluation of the nipple and axilla. Stable cyst within the left breast at 4:00 7 cm from the nipple measuring 4 x 3 x 4 cm. Stable cyst within the left breast at 1:00 4 cm from the nipple measuring 1.7 x 1.0 x 1.8 cm. Decreased hypoechoic area at 3:00 in the left breast 7 cm from the nipple measuring 0.2 x 0.5 x 0.3 cm. This is at site of prior biopsy and favored to represent scarring. Overall Assessment: Benign, BI-RAD 2 Management: Screening Mammogram of both breasts in 1 year. A clinical breast exam by your physician is recommended on an annual basis and results should be correlated with mammographic findings. This exam should not preclude additional follow-up of suspicious palpable abnormalities. Results were given to the patient verbally at the time of exam. Electronically signed and approved by: Tani Murphy D.O.
== END | disposition home or self-care (01) ==
LOC: RADMAMWWP 08:58
PROVIDERS: ATTEND Surgery
DX: R92.8 Other abnormal and inconclusive findings on diagnostic imaging of breast (principal)
CPT/HCPCS: 77061; 77065

== ENCOUNTER → 2023-05-11 | Outpatient (CLI) | payer BC ==
--- NOTE | 2023-05-12 09:54 | MM ---
Reason for Exam: Screening (asymptomatic). Last mammogram was performed 1 year(s) and 6 month(s) ago. Patient History: Menarche at age 14. Patient has no children. Premenopausal. Patient used Hormonal Contraceptives for 5 years. 01/31/2021, Excisional Biopsy on the Left side. 01/31/2021, Lumpectomy on the Left side. 11/18/2020, High risk Core Biopsy on the left side. 09/10/2016, Benign Core Biopsy on the left side. 08/29/2014, Benign Core Biopsy on the right side. 08/29/2014, Benign Core Biopsy on the right side. Risk Values: Ann 5 year model risk: 1.6%. NCI Lifetime model risk: 14.5%. Prior Study Comparison: 10/23/2021 Bilateral MG 3D screening mammo w/cad, [facility]. 10/30/2021 Left MG 3D work up w/cad LT, [facility]. 05/04/2022 Left MG 3D diag mammo w/cad LT, [facility]. Tissue Density: The breast tissue is heterogeneously dense. This may lower the sensitivity of mammography. Findings: Analyzed By CAD. Bilateral breast biopsy clips. There is no suspicious group of microcalcifications or new suspicious mass. Overall Assessment: Benign, BI-RAD 2 Management: Screening Mammogram of both breasts in [address] [facility] will attempt to contact patient to return for supplemental views and ultrasound if indicated. Patient should continue monthly self-breast exams. A clinical breast exam by your physician is recommended on an annual basis. This exam should not preclude additional follow-up of suspicious palpable abnormalities. Note on Ann scores and lifetime risk: 1. A Ann score greater than 3% is considered moderate risk. If this is the case, consider specialist referral to assess eligibility for a risk reducing agent. 2. If overall lifetime risk for the development of breast cancer is 20% or higher, the patient may qualify for future screening with alternating mammogram and breast MRI. Electronically signed and approved by: Isidoro Lopez DO
== END | disposition home or self-care (01) ==
LOC: RADMAMWWP 07:24
PROVIDERS: ATTEND Obstetrics & Gynecology
DX: Z12.31 Encounter for screening mammogram for malignant neoplasm of breast (principal)
CPT/HCPCS: 77063; 77067

== ENCOUNTER → 2023-09-21 | Outpatient (CLI) | payer BC ==
[2023-09-21 15:10] LABS: Basophils # (A) 0.04 X 10*3/uL (0.00-0.10); Basophils % (A) 1.3 %; Eosinophils # (A) 0.07 X 10*3/uL (0.04-0.35); Eosinophils % (A) 2.3 %; HCT 42.1 % (37.2-46.3); HGB 13.8 g/dL (12.0-15.0); Lymphocytes # (A) 1.11 X 10*3/uL (0.90-5.00); Lymphocytes % (A) 35.9 %; MCH 32.3 pg (27.0-32.0); MCHC 32.8 g/dL (32.0-37.0); MCV 98.6 FL (80.0-97.0); Mean Platelet Volume 11.7 FL (9.5-12.2); Monocytes # (A) 0.31 X 10*3/uL (0.20-1.00); NRBC Per 100 WBC 0 X 10*3/uL (0.00-0.01); Neutrophils # (A) 1.55 X 10*3/uL (1.80-7.70); Neutrophils % (A) 50.2 %; Platelet Count 190 X 10*3/uL (140-440); RBC 4.27 X 10*6/uL (4.10-5.20); RDW 12.4 % (11.5-14.5); WBC 3.09 X 10*3/uL (4.50-10.00)
[2023-09-21 15:56] LABS: ALT 22 U/L (8-44); AST 21 U/L (13-35); Albumin 4.7 g/dL (3.8-4.9); Albumin/Globulin Ratio 2.04 Ratio (1.60-3.17); Alkaline Phosphatase 43 U/L (41-126); Blood Urea Nitrogen 10.8 mg/dL (9.0-27.0); Calcium 9.7 mg/dL (8.7-10.3); Carbon Dioxide 24.5 mmol/L (21.6-31.8); Chloride 104 mmol/L (96-109); Chol/HDL Ratio 2.51 Ratio; Estradiol <20.0 pg/mL; Globulin 2.3 g/dL (1.6-3.3); Glucose 98 mg/dL (70-110); Potassium 4.2 mmol/L (3.5-5.5); Sodium 139 mmol/L (135-145); Total Bilirubin 0.4 mg/dL (0.3-1.2); VLDL Calculation 14.98 mg/dL (5.00-40.00)
[2023-09-21 16:17] LABS: Luteinizing Hormone 56.9 mIU/mL
== END | disposition home or self-care (01) ==
LOC: LABWHC1 08:53
PROVIDERS: ATTEND Family Medicine
DX: Z13.21 Encounter for screening for nutritional disorder (principal); Z13.220 Encounter for screening for lipoid disorders; Z13.228 Encounter for screening for other metabolic disorders; Z13.29 Encounter for screening for other suspected endocrine disorder; N95.9 Unspecified menopausal and perimenopausal disorder
CPT/HCPCS: 36415; 80053; 80061; 82306; 82607; 82670; 83001; 83002; 84443; 85025

== ENCOUNTER → 2024-05-19 | Outpatient (CLI) | payer OTHER ==
--- NOTE | 2024-05-19 08:09 | MM ---
Reason for Exam: High risk patient. Last screening mammogram was performed 12 month(s) ago. Patient History: Menarche at age 14. Patient has no children. Premenopausal. Patient used Hormonal Contraceptives for 5 years. 01/31/2021, Excisional Biopsy on the Left side. 01/31/2021, Lumpectomy on the Left side. 11/18/2020, High risk Core Biopsy on the left side. 09/10/2016, Benign Core Biopsy on the left side. 08/29/2014, Benign Core Biopsy on the right side. 08/29/2014, Benign Core Biopsy on the right side. Risk Values: Ann 5 year model risk: 1.7%. NCI Lifetime model risk: 14.3%. Prior Study Comparison: 10/23/2021 Bilateral MG 3D screening mammo w/cad, [facility]. 05/04/2022 Left MG 3D diag mammo w/cad , [facility]. 05/11/2023 Bilateral MG 3D screening mammo w/cad, [facility]. Tissue Density: The breasts are heterogeneously dense, which may obscure small masses. Findings: Analyzed By CAD. Bilateral biopsy clips and left surgical clip. No new suspicious masses, calcifications or distortions. Overall Assessment: Benign, BI-RAD 2 Management: Screening Mammogram of both breasts in 1 year. Results were given to the patient verbally at the time of exam. Patient should continue monthly self-breast exams. A clinical breast exam by your physician is recommended on an annual basis. This exam should not preclude additional follow-up of suspicious palpable abnormalities. Note on Ann scores and lifetime risk: 1. A Ann score greater than 3% is considered moderate risk. If this is the case, consider specialist referral to assess eligibility for a risk reducing agent. 2. If overall lifetime risk for the development of breast cancer is 20% or higher, the patient may qualify for future screening with alternating mammogram and breast MRI. [facility], , 05/19/2024 7:50 AM. Electronically signed and approved by: Isidoro Lopez DO
--- NOTE | 2024-05-19 08:44 | USB ---
Reason for Exam: Clinical finding. Patient History: Menarche at age 14. Patient has no children. Premenopausal. Patient used Hormonal Contraceptives for 5 years. 01/31/2021, Excisional Biopsy on the Left side. 01/31/2021, Lumpectomy on the Left side. 11/18/2020, High risk Core Biopsy on the left side. 09/10/2016, Benign Core Biopsy on the left side. 08/29/2014, Benign Core Biopsy on the right side. 08/29/2014, Benign Core Biopsy on the right side. Risk Values: Ann 5 year model risk: 1.7%. NCI Lifetime model risk: 14.3%. Technique: Method: Targeted. Prior Study Comparison: 10/30/2021 Left MG 3D work up w/cad , [facility]. 05/04/2022 Left MG 3D diag mammo w/cad , [facility]. 05/11/2023 Bilateral MG 3D screening mammo w/cad, [facility]. Findings: The upper section of the breast of both breasts, the axilla of both breasts and the retroareolar of both breasts were scanned. Technique utilized:US breast limited BILAT Image; Ultrasound imaging of: Area of concern, retroareolar region and axilla. No evidence for organizing fluid collection or mass. Overall Assessment: Negative, BI-RAD 1 Management: Screening Mammogram of both breasts in 1 year. A clinical breast exam by your physician is recommended on an annual basis and results should be correlated with mammographic findings. This exam should not preclude additional follow-up of suspicious palpable abnormalities. Results were given to the patient verbally at the time of exam. [facility], , 05/19/2024 8:41 AM. Electronically signed and approved by: Isidoro Lopez DO
== END | disposition home or self-care (01) ==
LOC: RADMAMWWP 07:26
PROVIDERS: ATTEND Obstetrics & Gynecology
DX: N60.99 Unspecified benign mammary dysplasia of unspecified breast (principal); R92.333 Mammographic heterogeneous density, bilateral breasts
CPT/HCPCS: 77062; 77066

== ENCOUNTER → 2024-09-23 | Outpatient (CLI) | payer OTHER ==
[2024-09-24 00:48] LABS: ALT 29 U/L (8-44); AST 27 U/L (13-35); Albumin 4.9 g/dL (3.8-4.9); Albumin/Globulin Ratio 1.96 Ratio (1.60-3.17); Alkaline Phosphatase 54 U/L (41-126); BUN/Creat Ratio 15.67 Ratio (12.00-20.00); Blood Urea Nitrogen 14.1 mg/dL (9.0-27.0); C Reactive Protein <0.30 mg/dL (0.00-0.80); Carbon Dioxide 25.1 mmol/L (21.6-31.8); Chloride 101 mmol/L (96-109); Chol/HDL Ratio 3.08 Ratio; Globulin 2.5 g/dL (1.6-3.3); Glucose 89 mg/dL (70-110); LDL Cholesterol,Calculated 163.6 mg/dL (0.0-131.0); Potassium 3.9 mmol/L (3.5-5.5); Sodium 139 mmol/L (135-145); Total Bilirubin 0.5 mg/dL (0.3-1.2); Total Protein 7.4 g/dL (6.2-8.2); VLDL Calculation 15.54 mg/dL (5.00-40.00)
[2024-09-24 06:35] LABS: Basophils # (A) 0.04 X 10*3/uL (0.00-0.10); Basophils % (A) 1.3 %; Eosinophils # (A) 0.03 X 10*3/uL (0.04-0.35); HCT 44.8 % (37.2-46.3); HGB 14.4 g/dL (12.0-15.0); Lymphocytes # (A) 1.24 X 10*3/uL (0.90-5.00); Lymphocytes % (A) 40.5 %; MCHC 32.1 g/dL (32.0-37.0); MCV 96.3 FL (80.0-97.0); Mean Platelet Volume 11.4 FL (9.5-12.2); Monocytes # (A) 0.32 X 10*3/uL (0.20-1.00); Monocytes % (A) 10.5 %; NRBC Per 100 WBC 0 X 10*3/uL (0.00-0.01); Neutrophils # (A) 1.42 X 10*3/uL (1.80-7.70); Neutrophils % (A) 46.4 %; Platelet Count 211 X 10*3/uL (140-440); RBC 4.65 X 10*6/uL (4.10-5.20); RDW 12.2 % (11.5-14.5); WBC 3.06 X 10*3/uL (4.50-10.00)
[2024-09-24 12:10] LABS: Erythrocyte Sedimentation Rate 4 mm/Hr (0-30)
== END | disposition home or self-care (01) ==
LOC: LABWHC1 10:42
PROVIDERS: ATTEND Family Medicine
DX: Z13.29 Encounter for screening for other suspected endocrine disorder (principal); Z13.220 Encounter for screening for lipoid disorders; Z13.228 Encounter for screening for other metabolic disorders; F41.9 Anxiety disorder, unspecified; I73.00 Raynaud's syndrome without gangrene; J30.9 Allergic rhinitis, unspecified; L71.9 Rosacea, unspecified; R61 Generalized hyperhidrosis; R92.8 Other abnormal and inconclusive findings on diagnostic imaging of breast; Z85.828 Personal history of other malignant neoplasm of skin
CPT/HCPCS: 36415; 80053; 80061; 82306; 82607; 84443; 85025; 85652; 86140